=== PATIENT | male | born 1955 | race Caucasian/White ===

== ENCOUNTER 2017-07-29 08:00 | Day surgery (SDC) | payer OTHER ==
[2017-07-09 09:18] VITALS: BMI 27.0
--- NOTE | 2017-07-09 09:45 | PAT Medication Instructions ---
Service Date Jul 09, 2017. Current Home Medication List Acetaminophen (Tylenol), 2 TAB PO Q6 PRN for Pain or Fever Ascorbic Acid (Vitamin C), 1,500 MG PO BID Cholecalciferol (Vitamin D3), 1 TAB PO QPM Finasteride (Proscar), 5 MG PO QAM Fluticasone Propionate (Nasal) (Flonase Allergy Relief), 2 SPRAYS NA QAM Ibuprofen (Advil), 400 MG PO DAILY PRN for Pain or Fever Multivitamin (Multivitamin), 1 TAB PO QAM Sildenafil Citrate (Viagra), 150 MG PO PRN PRN for ed Tamsulosin Hcl (Flomax), 2 CAP PO QPM Medication Instructions For Your Scheduled Surgery - Contact your surgeon for instructions for: Ibuprofen (Advil), 400 MG PO DAILY PRN for Pain or Fever - Hold the following medications the morning of surgery: Multivitamin (Multivitamin), 1 TAB PO QAM Sildenafil Citrate (Viagra), 150 MG PO PRN PRN for ed Ascorbic Acid (Vitamin C), 1,500 MG PO BID - Take the following medications the morning of surgery with a sip of water: Finasteride (Proscar), 5 MG PO QAM Acetaminophen (Tylenol), 2 TAB PO Q6 PRN for Pain or Fever (if needed, can be taken up to four hours before surgery) Fluticasone Propionate (Nasal) (Flonase Allergy Relief), 2 SPRAYS NA QAM - Take the following medications as scheduled the night before surgery: Tamsulosin Hcl (Flomax), 2 CAP PO QPM Ascorbic Acid (Vitamin C), 1,500 MG PO BID Cholecalciferol (Vitamin D3), 1 TAB PO QPM Acetaminophen (Tylenol), 2 TAB PO Q6 PRN for Pain or Fever (if needed) Sildenafil Citrate (Viagra), 150 MG PO PRN PRN for ed (if needed) If you have any questions please call us at [phone] or [phone] or [phone]
--- NOTE | 2017-07-09 10:35 | DIAGNOSTIC IMAGING REPORT ---
CHEST 2 VIEWS ROUTINE HISTORY: Preop. COMPARISON: None. FINDINGS: The lungs are clear. Cardiac silhouette is normal in size. No pleural effusions. No pneumothorax. IMPRESSION: No acute process. Electronically signed by: Fer Tan M.D. 07/09/2017 10:34 AM Dictated Date/Time: 07/09/2017 10:33 AM
[2017-07-09 10:49] LABS: URINE APPEARANCE CLEAR (CLEAR); URINE BILIRUBIN NEG (NEG); URINE COLOR DK YELLOW; URINE NITRITE NEG (NEG); URINE SPECIFIC GRAVITY 1.026 (1.000-1.030); UROBILINOGEN NEG (NEG)
[2017-07-09 10:53] LABS: MANUAL MICROSCOPIC REQUIRED? NO; REVIEW REQ? NO
[2017-07-09 10:57] LABS: BASO % 0.5 %; BASO ABS # 0.04 K/uL (0-0.2); COMPLETE YES; HEMATOCRIT 46.2 % (42-52); IG% 0.4 %; LYMPH % 28.3 %; LYMPH ABS # 2.19 K/uL (1.2-3.4); MEAN CELL VOLUME 88.8 fL (80-100); MEAN CORPUSCULAR HEMOGLOBIN 31.2 pg (25-34); MEAN CORPUSCULAR HGB CONC 35.1 g/dl (32-36); MEAN PLATELET VOLUME 9.6 fL (7.4-10.4); MONO % 6.5 %; NEUT % 60.3 %; PLATELET COUNT 188 K/uL (130-400); WHITE BLOOD COUNT 7.73 K/uL (4.8-10.8)
[2017-07-09 11:18] LABS: BUN/CREATININE RATIO 21.5 (10-20); CALCIUM 9.1 mg/dl (8.5-10.1); CREATININE 0.82 mg/dl (0.60-1.40); POTASSIUM 3.9 mmol/L (3.5-5.1)
[2017-07-29] VITALS (8 sets, daily range): BP systolic 74–139; BP diastolic 55–86; PULSE 62–87; TEMP 36.4–37; O2SAT 94–97; Ht 180.3 cm; Wt 90.3 kg
[~2017-07-29] VITALS: Ht 180.3 cm; Wt 90.3 kg
[~2017-07-29 08:00] MED LIST: ACET-1256 PO; ASCA500 PO; CHOL1000 PO; CIPROFLOXACIN / D5W 400 MG IV SCH; FINA5TAB PO; FLUT0.15; IBUP-1050 PO; LACTATED RINGER'S 1000ML 1,000 ML IV SCH; MULT-506 PO; SILD100T PO; TAMS0.4C38 PO
[2017-07-29] MEDS ORDERED: FENTANYL CITRATE INJ 50 MCG/1 ML 2 ML VIAL IV PRN (09:15)
[2017-07-29] MEDS ORDERED: EpHEDrine SULFATE INJ 50 MG/ML AMP IV PRN (09:15)
[2017-07-29] MEDS ORDERED: HYDROmorphone INJ 0.5 MG/0.5 ML SYR IV PRN (09:15)
[2017-07-29] MEDS ORDERED: ATROPINE SULFATE 0.1 MG/ML 5ML SYR IV PRN (09:15)
[2017-07-29] MEDS ORDERED: ONDANSETRON INJ 2 MG/ML 2 ML VIAL IV PRN (09:15)
[2017-07-29] MEDS ORDERED: PHEN95TA14 PO (09:27)
[2017-07-29] MEDS ORDERED: HYDR-5688 PO (09:27)
[2017-07-29] MEDS ORDERED: CIPR-255 PO (09:27)
--- NOTE | 2017-07-29 09:30 | Discharge Instructions ---
Discharge Instructions Date of Service Jul 29, 2017. Admission Reason for Admission: Benign Prostatic Hyperplasia Discharge Discharge Diagnosis / Problem: BPH Discharge Goals Goal(s): Decrease discomfort, Improve function, Increase independence, Improve disease control Activity Recommendations Activity Limitations: resume your previous activity Lifting Limitations: none Exercise/Sports Limitations: none May Resume Sexual Activity: when tolerated Shower/Bathe: no limitations Driving or Machine Use: resume 1 day after discharge . Instructions / Follow-Up Instructions / Follow-Up Please keep your previously scheduled follow up appointment Current Hospital Diet Patient's current hospital diet: Discharge Diet Recommended Diet: Regular Diet Pending Studies Studies pending at discharge: no Medical Emergencies . Who to Call and When: Medical Emergencies: If at any time you feel your situation is an emergency, please call 911 immediately. . Non-Emergent Contact Non-Emergency issues call your: Urologist Call Non-Emergent contact if: you have a fever, temperature is above 101.5, your pain is not controlled, your pain is worsening . . "Provider Documentation" section prepared by Brayan Barrett. . VTE Core Measure Inpt VTE Proph given/why not?: Treatment not indicated [place] Drug Monitoring Program Search Results: patient reviewed within database, no issues identified
[2017-07-29] MEDS ORDERED: PROPOFOL IV EMULSION 10 MG/ML 20 ML VIAL IV ONE (09:43)
[2017-07-29] MEDS ORDERED: LIDOCAINE HCL 2% 2 ML VIAL (20MG/ML) ONE (09:43)
[2017-07-29] MEDS ORDERED: FENTANYL CITRATE INJ 50 MCG/1 ML 2 ML VIAL ONE (09:44)
[2017-07-29] MEDS ORDERED: MIDAZOLAM HCL 1 MG/ML 2ML VIAL ONE (09:44)
--- NOTE | 2017-07-29 09:54 | History & Physical Bridge Note ---
H&P Re-Evaluation Bridge Note: I have examined the patient, reviewed the History & Physical and in the interval since the performance of the History & Physical I have noted the following changes of clinical significance: No changes noted
[2017-07-29] MEDS ORDERED: SODIUM CHLORIDE 0.9% 1000ML 1,000 ML IV SCH (11:11)
[2017-07-29] MEDS ORDERED: PHENAZOPYRIDINE HCL 200 MG TAB PO STA (11:11)
[2017-07-29] MEDS ORDERED: OXYCODONE/ACETAMINOPHEN 5-325 TAB PO PRN ×2 (11:15)
--- NOTE | 2017-07-29 11:15 | [facility] Operative Report ---
Operative Report Operative Date Jul 29, 2017. Pre-Operative Diagnosis Benign Prostatic Hyperplasia Post-Operative Diagnosis Benign Prostatic Hyperplasia Procedure(s) Performed Cystoscopy, Urolift Surgeon Dr. Celia Sanchez Procedures Analyst Surgeon(s) none Estimated Blood Loss 0mL Findings High bladder neck with small intravesical median lobe - somewhat fish[place] bladder neck. Small prostate overall with minimal to moderate lateral lobe hypertrophy If no success with uro-lift, he would be a very good candidate for TUIP Specimens none per surgeon Drains none Anesthesia sedation Complication(s) None Disposition Recovery Room / PACU (stable) Indications Lower urinary tract symptoms Description of Procedure Patient was identified in the preoperative holding area, appropriate informed consents were reviewed and completed and the patient was transported to the operating suite. Upon arrival he received appropriate preoperative antibiotics in the form of ciprofloxacin. Adequate sedation was achieved, and he was placed in dorsal lithotomy position where he was sterilely prepped and draped in standard fashion. I began the case by passing a cystoscope with 0 lens. Inspection of the urethra revealed healthy-appearing mucosa without evidence of strictures. Prostate was inspected, and he was noted to have mild to moderate lateral lobe hypertrophy, and more concerning Joseph high bladder neck with some intravesical median growth. Full inspection of the bladder was carried out. There were no tumors, stones, or other abnormalities. I then exchanged visual obturator for the first uro-lift device. The first suture was deployed on the right side of the prostate approximately 1 cm in from the bladder neck. A mirror image suture was then deployed on the left. A third suture was placed adjacent to the verumontanum on the right. A fourth suture was placed in a mirror image of this location on the left. The apex of his prostate open extremely nicely, however the bladder neck remained moderately obstructed predominantly due to the median bar. I attempted to place a fifth suture adjacent to the bladder neck, however, this did not make significant difference in terms of the opening of the bladder neck and I therefore decided not to place a 6 suture on the opposite side. There was excellent hemostasis. I reinspected the bladder and prostate. From the verumontanum I was able to visualize the lumen of the bladder, and elects to concluded the case at this time. If he does not have success with this treatment, he would certainly be a good candidate for TUIP. He was reversed from anesthesia and taken to the recovery room in stable condition. I attest to the content of the Intraoperative Record and any orders documented therein. Any exceptions are noted below.
--- NOTE | 2017-07-29 11:26 | Anesthesiology Progress Note ---
Anesthesia Post Op Note Date & Time Jul 29, 2017 at 11:25 Vital Signs Pain Intensity: 0 Vital Signs Past 12 Hours Date Time Temp Pulse Resp B/P (MAP) Pulse Ox O2 Delivery O2 Flow Rate FiO2 07/29/17 11:15 90 16 116/73 95 Room Air 07/29/17 11:07 36.3 94 16 113/67 98 Oxymask 7 07/29/17 08:35 37 85 18 139/86 (103) 96 Room Air Notes Mental Status: alert / awake / arousable, participated in evaluation Pt Amnestic to Procedure: Yes Nausea / Vomiting: adequately controlled Pain: adequately controlled Airway Patency, RR, SpO2: stable & adequate BP & HR: stable & adequate Hydration State: stable & adequate Anesthetic Complications: no major complications apparent Doing well, no complaints. VSS
== END 2017-07-29 14:50 | disposition home or self-care (01) ==
LOC: C.ACU 08:00
PROVIDERS: ATTEND Urology
DX: N40.1 Benign prostatic hyperplasia with lower urinary tract symptoms (principal); N52.9 Male erectile dysfunction, unspecified; Z79.899 Other long term (current) drug therapy

== ENCOUNTER 2017-08-05 11:50 | Day surgery (SDC) | payer OTHER ==
[~2017-08-05] VITALS: Ht 180.3 cm; Wt 88.0 kg
[~2017-08-05 11:50] MED LIST changes: +ATROPINE SULFATE 0.1 MG/ML 5ML SYR IV PRN; +CIPR-255 PO; +EpHEDrine SULFATE INJ 50 MG/ML AMP IV PRN; +FENTANYL CITRATE INJ 50 MCG/1 ML 2 ML VIAL IV PRN; +HYDR-5688 PO; +HYDROmorphone INJ 0.5 MG/0.5 ML SYR IV PRN; +LABETALOL HCL IV 5 MG/ML 20ML IV PRN; +MEPERIDINE HCL 25 MG/ML CARP IV PRN; +ONDANSETRON INJ 2 MG/ML 2 ML VIAL IV PRN; +PHEN95TA14 PO
[2017-08-05] MEDS ORDERED: SENNTAB23 PO (12:05)
[2017-08-05 12:10] VITALS: BP 130/86; PULSE 91; TEMP 36.6; O2SAT 95; Ht 180.3 cm; Wt 88.0 kg
--- NOTE | 2017-08-05 12:11 | History and Physical ---
History & Physical Date Aug 05, 2017. Chief Complaint urinary retention History of Present Illness The patient is a 62 year old male with complaints of urinary retention s/p Urolift for significant voiding dysfunction - unfortunately, his voiding pattern has not improved with this procedure - he has a known intravesical component to his prostate that seems to be his prominent source of obstruction. Past Medical/Surgical History cysto, urolift Additional History Hepatic Disease: No Endocrine Disorder: No Kidney Disease: No Hypertension: No Heart Disease: No Bleeding Tendencies: No Infectious Diseases: No Allergies Coded Allergies: No Known Allergies (Unverified , 08/05/17) Home Medications Scheduled Ascorbic Acid (Vitamin C), 1,500 MG PO BID Cholecalciferol (Vitamin D3), 1 TAB PO QPM Ciprofloxacin Hcl (Cipro), 500 MG PO BID Finasteride (Proscar), 5 MG PO QAM Fluticasone Propionate (Nasal) (Flonase Allergy Relief), 2 SPRAYS NA QAM Multivitamin (Multivitamin), 1 TAB PO QAM Phenazopyridine Hcl (Azo Tabs), 2 TABS PO Q8 Sennosides-Docusate Sodium (Stool Softener), 1 TAB PO DIRECTED Tamsulosin Hcl (Flomax), 2 CAP PO QPM Scheduled PRN Acetaminophen (Tylenol), 2 TAB PO Q6 PRN for Pain or Fever Hydrocodone/Acetaminophen 5MG/325MG ([place] 5MG/325MG), 2 TABLETS PO Q6H PRN for Pain Ibuprofen (Advil), 400 MG PO DAILY PRN for Pain or Fever Sildenafil Citrate (Viagra), 150 MG PO PRN PRN for ed Physical Examination Skin: warm/dry Eyes: normal inspection ENT: normal ENT inspection Head: normocephalic Neck: supple Respiratory/Chest: lungs clear Cardiovascular: regular rate, rhythm Abdomen / GI: normal bowel sounds Back: normal inspection Extremities: normal inspection Genitourinary - Male: normal male genitalia Neurologic/Psych: no motor/sensory deficits, alert, oriented x 3 Diagnosis urinary retention Plan of Treatment JACOBY wray
[2017-08-05] MEDS ORDERED: FENTANYL CITRATE INJ 50 MCG/1 ML 2 ML VIAL ONE ×2 (12:33→13:06)
[2017-08-05] MEDS ORDERED: MIDAZOLAM HCL 1 MG/ML 2ML VIAL ONE (12:34)
[2017-08-05] MEDS ORDERED: LIDOCAINE HCL 2% 2 ML VIAL (20MG/ML) ONE (13:10)
[2017-08-05] MEDS ORDERED: PROPOFOL IV EMULSION 10 MG/ML 20 ML VIAL IV ONE (13:10)
[2017-08-05] MEDS ORDERED: ONDANSETRON INJ 2 MG/ML 2 ML VIAL ONE (13:10)
[2017-08-05] MEDS ORDERED: DEXAMETHASONE SOD INJ 4 MG/ML VIAL ONE (13:10)
[2017-08-05] MEDS ORDERED: PHENYLEPHRINE 100MCG/ML 5ML SYR ONE (13:10)
[2017-08-05] MEDS ORDERED: CIPR-255 PO (13:31)
[2017-08-05] MEDS ORDERED: HYDR-5688 PO (13:31)
[2017-08-05] MEDS ORDERED: SODIUM CHLORIDE 0.9% 1000ML 1,000 ML IV SCH (13:32)
--- NOTE | 2017-08-05 13:32 | Discharge Instructions ---
Discharge Instructions Date of Service Aug 05, 2017. Admission Reason for Admission: Benign Prostatic Hypertrophy Discharge Discharge Diagnosis / Problem: BPH; urinary retention Discharge Goals Goal(s): Decrease discomfort, Improve function Activity Recommendations Activity Limitations: resume your previous activity Lifting Limitations: none Exercise/Sports Limitations: none May Resume Sexual Activity: when tolerated Shower/Bathe: no limitations Driving or Machine Use: resume 1 day after discharge . Instructions / Follow-Up Instructions / Follow-Up Please come to Dr. Sanchez's office tomorrow (08/06/17) at 9:20AM to have your catheter removed. Current Hospital Diet Patient's current hospital diet: Discharge Diet Recommended Diet: Regular Diet Procedures Procedures Performed: Transurethral Incision of Prostate, Resection/Vaporization of Median Lobe Pending Studies Studies pending at discharge: no Medical Emergencies . Who to Call and When: Medical Emergencies: If at any time you feel your situation is an emergency, please call 911 immediately. . Non-Emergent Contact Non-Emergency issues call your: Urologist Call Non-Emergent contact if: you have a fever, temperature is above 101.5, your pain is not controlled, your pain is worsening . . "Provider Documentation" section prepared by Brayan Barrett. . VTE Core Measure Inpt VTE Proph given/why not?: Treatment not indicated [place] Drug Monitoring Program Search Results: patient reviewed within database, no issues identified
--- NOTE | 2017-08-05 13:37 | [facility] Operative Report ---
Operative Report Operative Date Aug 05, 2017. Pre-Operative Diagnosis Benign Prostatic Hypertrophy, Urinary Retention Post-Operative Diagnosis same as pre-operative Procedure(s) Performed Transurethral Incision of Prostate, Resection/Vaporization of Median Lobe Surgeon Dr. Gordon Sanchez Decommissioning Well Site Manager Surgeon(s) none Estimated Blood Loss 10ml Findings Significant intravesical median lobe with a high bladder neck Specimens none per surgeon Drains 22 Thai Mccurdy catheter Anesthesia Gen. Complication(s) None Disposition Recovery Room / PACU (stable) Indications Urinary retention Description of Procedure The patient was identified in the preoperative holding area, appropriate informed consents were reviewed and completed, and the patient was transported to the operating suite. Upon arrival he received appropriate preoperative antibiotics in the form of ciprofloxacin as well as general anesthesia. He was placed in dorsal lithotomy position where he was sterilely prepped and draped in standard fashion. I began the case by passing a 24 Thai resectoscope with 30 lens and visual obturator. Inspection revealed notable obstruction of the bladder neck with a large intravesical median lobe. Lateral lobes the prostate were tacked out of the way nicely from his prior uro-lift. Inspection of the bladder was conducted, there were no gross abnormalities aside from mild inflammation related to his prior catheter. I identified the ureteral orifices and utilizing a button electrode performed TUIP. My line of incision extended from the bladder neck to the verumontanum in a line from the UO towards the verumontanum. I performed this bilaterally and immediately appreciated a significant dropping of the bladder neck. Unfortunately, he still has not median lobe tissue that there was a large lump present and between these 2 incisions, and I elected to use the electrode to flatten this. At the conclusion of this portion of the resection/vaporization, I placed the scope near the verumontanum and was able to easily see into the bladder. I confirmed excellent hemostasis and then withdrew the scope and concluded the case. I did place a 22 Thai Mccurdy catheter at the end of the case without difficulty. He was subsequently extubated and taken to the PACU in stable condition. I attest to the content of the Intraoperative Record and any orders documented therein. Any exceptions are noted below.
[2017-08-05] MEDS ORDERED: ACETAMINOPHEN 325 MG TAB PO PRN (13:45)
[2017-08-05] MEDS ORDERED: HYDROCODONE/ACETAMIN 5/325MG TAB PO PRN ×2 (13:45)
[2017-08-05 14:15] VITALS: BP 117/68; PULSE 72; TEMP 36.3; O2SAT 95
--- NOTE | 2017-08-05 14:32 | Anesthesiology Progress Note ---
Anesthesia Post Op Note Date & Time Aug 05, 2017 at 14:32 Vital Signs Pain Intensity: 0 Vital Signs Past 12 Hours Date Time Temp Pulse Resp B/P (MAP) Pulse Ox O2 Delivery O2 Flow Rate FiO2 08/05/17 14:10 36.6 77 16 116/72 93 Room Air 08/05/17 14:00 73 16 114/70 93 Room Air 08/05/17 13:50 77 16 114/63 98 Oxymask 3 08/05/17 13:40 67 14 101/62 98 Oxymask 5 08/05/17 13:32 37.0 67 14 86/57 96 Oxymask 10 08/05/17 12:10 36.6 91 16 130/86 (101) 95 Room Air Notes Mental Status: alert / awake / arousable, participated in evaluation Pt Amnestic to Procedure: Yes Nausea / Vomiting: adequately controlled Pain: adequately controlled Airway Patency, RR, SpO2: stable & adequate BP & HR: stable & adequate Hydration State: stable & adequate Anesthetic Complications: no major complications apparent
[2017-08-05 14:50] VITALS: BP 121/75; PULSE 68; TEMP 36.3; O2SAT 97
== END 2017-08-05 15:10 | disposition home or self-care (01) ==
LOC: C.ACU 11:50
PROVIDERS: ATTEND Urology
DX: N40.1 Benign prostatic hyperplasia with lower urinary tract symptoms (principal); R33.9 Retention of urine, unspecified